=== PATIENT | male | born 1990 | race American Indian/Alaskan Native ===

== ENCOUNTER 2023-05-24 23:17 | Emergency (ER) | payer OTHER ==
[2023-05-24] MEDS ORDERED: Ondansetron 4 MG/2 ML SDV IVPUSH ONE (23:22)
[2023-05-24] MEDS ORDERED: Sodium Chloride 0.9% 1,000 ML IV SCH (23:30)
[2023-05-24 23:46] LABS: BLOOD UREA NITROGEN,BUN 12 mg/dL (7-18); BUN/CREATININE RATIO 9.2 (9-20); CALCIUM 8.6 mg/dL (8.6-10.2); CARBON DIOXIDE,CO2 28 mmol/L (21-32); CHLORIDE,CL 103 mmol/L (100-110); CREATININE 1.3 mg/dL (0.70-1.30); ESTIMATED GFR 75 mL/min (>60); GLUCOSE RANDOM 123 mg/dL (80-116); SODIUM,NA 143 mmol/L (135-145)
[2023-05-24 23:47] LABS: BASOPHILS PERCENT AUTO 0.6 % (0.3-3.8); EOSINOPHILS PERCENT AUTO 0.8 % (0.1-6.8); HEMATOCRIT 47.3 % (38.3-50.1); HEMOGLOBIN 16.1 g/dL (12.9-17.7); LYMPHOCYTES ABSOLUTE AUTO 2.1 x10-3/uL (0.5-4.5); LYMPHOCYTES PERCENT AUTO 37.5 % (15.8-45.3); MEAN CORPUSCULAR HEMOGLOBIN 30.5 pg (27.0-33.3); MEAN CORPUSCULAR VOLUME 89.5 fL (80.8-98.7); MEAN PLATELET VOLUME 8.3 fL (6.7-11.0); MONOCYTES ABSOLUTE AUTO 0.5 x10-3/uL (0.0-1.2); MONOCYTES PERCENT AUTO 9.4 % (5.5-15.2); NEUTROPHILS ABSOLUTE AUTO 2.9 x10-3/uL (1.7-6.9); NEUTROPHILS PERCENT AUTO 51.7 % (40.3-71.8); PLATELET COUNT,PLT 336 x10(3)uL (117-477); RED BLOOD CELL COUNT 5.28 x10(6)uL (3.90-5.90); RED CELL DISTRIBUTION WIDTH 13.4 % (12.4-15.0); WHITE BLOOD CELL COUNT,WBC 5.6 x10-3/uL (3.2-10.1)
[2023-05-24 23:52] LABS: ALANINE AMINOTRANSFERASE,ALT 79 U/L (12-36); ALBUMIN 3.9 g/dL (3.5-5.2); ALKALINE PHOSPHATASE 180 IU/L (56-112); ASPARTATE AMNIOTRANSFERASE,AST 39 IU/L (5-25); BILIRUBIN TOTAL 0.2 mg/dL (0.1-1.3); PROTEIN TOTAL,TP 7.9 g/dL (6.0-8.0)
[2023-05-24] MEDS ORDERED: Ketorolac 30 MG/ML SDV IM STA (23:57)
[2023-05-25] MEDS ORDERED: Ketorolac 30 MG/ML SDV IVPUSH ONE (00:02)
[2023-05-25 00:24] LABS: ACETAMINOPHEN < 2 ug/mL (<2); SALICYLATE < 2.8 mg/dL (<2.8)
[2023-05-25 00:28] LABS: TSH ULTRASENSITIVE 2.58 IU/mL (0.36-3.74)
[2023-05-25 00:31] LABS: ETHANOL BLOOD MEDICAL 0.2 % (<0.03)
[2023-05-25 00:54] LABS: BILIRUBIN,URINE NEGATIVE (NEGATIVE); GLUCOSE,URINE NORMAL (NORMAL); KETONES,URINE NEGATIVE (NEGATIVE); LEUKOCYTE ESTERASE,URINE NEGATIVE (NEGATIVE); NITRITE,URINE NEGATIVE (NEGATIVE); OCCULT BLOOD,URINE NEGATIVE (NEGATIVE); PROTEIN,URINE NEGATIVE (NEGATIVE); UROBILINOGEN,URINE 1 mg/dL (NEGATIVE)
[2023-05-25 01:00] LABS: APPEARANCE,URINE CLEAR (CLEAR); BACTERIA,URINE RARE (NS); COLOR,URINE YELLOW (YELLOW); RBC,URINE 0-5 (0-5); SQUAMOUS EPITHELIAL CELLS,UR OCCASIONAL (NS,R,O); WBC,URINE 0-5 (0-5)
[2023-05-25 01:01] LABS: AMPHETAMINES SCREEN, URINE POSITIVE (NEGATIVE); BARBITURATE SCREEN,URINE NEGATIVE (NEGATIVE); BENZODIAZEPINES SCREEN,URINE NEGATIVE (NEGATIVE); BUPRENORPHINE SCREEN,URINE NEGATIVE (NEGATIVE); METHADONE SCREEN, URINE NEGATIVE (NEGATIVE); METHAMPHETAMINE SCREEN, URINE POSITIVE (NEGATIVE); OXYCODONE SCREEN,URINE NEGATIVE (NEGATIVE); PROPOXYPHENE SCREEN,URINE NEGATIVE (NEGATIVE); THC SCREEN,URINE POSITIVE (NEGATIVE)
[2023-05-25] MEDS ORDERED: Acetaminophen 500 MG Tab PO ONE (08:26)
[2023-05-25] MEDS ORDERED: Ibuprofen 800 MG Tab PO ONE (08:26)
== END 2023-05-25 13:30 | disposition home or self-care (01) ==
LOC: FB.ED 23:17
DX: R45.851 Suicidal ideations (principal); F10.129 Alcohol abuse with intoxication, unspecified; F19.10 Other psychoactive substance abuse, uncomplicated; Z20.822 Contact with and (suspected) exposure to COVID-19; W22.01XA Walked into wall, initial encounter
CPT/HCPCS: 36415; 80053; 80143; 80179; 80307; 81001; 84439; 84443; 84484; 85025; 96374; 96375; 99283-25; J1885; J2405; J7030; U0002